=== PATIENT | female | born 1945 | race Two or more races ===

== ENCOUNTER 2020-06-14 10:45 | Inpatient (IN) | payer OTHER ==
[2020-06-14] MEDS ORDERED: GLIMEPIRIDE4 MG (12:37)
[2020-06-14] MEDS ORDERED: VYTORIN 10-801 EACH (12:37)
[2020-06-14] MEDS ORDERED: ZESTORETIC 20-1 EAC1 (12:37)
[2020-06-25] MEDS ORDERED: HYOSCYAMINE0.125 M1 SL (08:01)
[2020-06-25] MEDS ORDERED: ULTRAM50 MG PO (08:02)
[2020-06-25] MEDS ORDERED: INTESTINEX680 M1 PO (08:03)
== END 2020-06-25 10:56 | disposition home or self-care (01) | DRG 331 ==
LOC: O/R 06-21 08:45 → SURH 06-21 08:45
PROVIDERS: ADMIT Surgery; ATTEND Surgery
PROC: 07TB4ZZ Resection of Mesenteric Lymphatic, Percutaneous Endoscopic Approach (ICD-10-PCS; 2020-06-21)
PROC: 4A1BXSH Monitoring of Gastrointestinal Vascular Perfusion using Indocyanine Green Dye, External Approach (ICD-10-PCS; 2020-06-21)
PROC: 0DJD8ZZ Inspection of Lower Intestinal Tract, Via Natural or Artificial Opening Endoscopic (ICD-10-PCS; 2020-06-21)
PROC: 0DTN4ZZ Resection of Sigmoid Colon, Percutaneous Endoscopic Approach (ICD-10-PCS; principal; 2020-06-21 17:30)
DX: D12.7 Benign neoplasm of rectosigmoid junction (principal); K57.30 Diverticulosis of large intestine without perforation or abscess without bleeding; D64.9 Anemia, unspecified; I44.0 Atrioventricular block, first degree; I11.9 Hypertensive heart disease without heart failure; E11.9 Type 2 diabetes mellitus without complications; E78.00 Pure hypercholesterolemia, unspecified